=== PATIENT | male | born 1995 | race Caucasian/White ===

== ENCOUNTER 2022-04-27 16:07 | Emergency (ER) | payer OTHER, SELFPAY | END 2022-04-27 20:40 | disposition left against medical advice (07) | PROVIDERS: Emergency Provider Emergency Medicine | DX: J02.9 Acute pharyngitis, unspecified (principal) ==

== ENCOUNTER 2024-05-20 20:05 | Emergency (ER) | payer OTHER, SELFPAY ==
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
[2024-05-20 20:11] VITALS: BP 120/70; BP 162/90; PULSE 76; PULSE 78; RESP 18; TEMP 36.8; O2SAT 97; O2SAT 98; BMI 22.3
[2024-05-20] MEDS: Ibuprofen 600 MG TABLET PO (21:10)
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
[2024-05-21 00:29] VITALS: BP 105/65; PULSE 65; RESP 18; TEMP 36.6; O2SAT 97
== END 2024-05-21 00:20 | disposition home or self-care (01) ==
PROVIDERS: Emergency Provider Emergency Medicine
DX: S40.021A Contusion of right upper arm, initial encounter (principal); V43.62XA Car passenger injured in collision with other type car in traffic accident, initial encounter; M54.2 Cervicalgia; Y93.89 Activity, other specified; Y92.414 Local residential or business street as the place of occurrence of the external cause; Y99.9 Unspecified external cause status
CPT/HCPCS: 70450; 72125; 73060; 99283; 99284